=== PATIENT | male | born 1990 | race African-American/Black ===

== ENCOUNTER 2017-06-23 20:34 | Emergency (ER) | payer OTHER ==
[2017-06-23 21:35] LABS: BASOPHILS % (AUTO) 0.5 %; EOSINOPHILS # (AUTO) 0.3 10^3/uL (0.0-0.7); EOSINOPHILS % (AUTO) 3.6 %; LYMPHOCYTES # (AUTO) 1.2 10^3/uL (1.5-3.5); LYMPHOCYTES % (AUTO) 14.8 %; MEAN CORPUSCULAR HEMOGLOBIN 31.3 pg (27.0-31.0); MEAN PLATELET VOLUME 9.3 fL (7.4-11.4); MONOCYTES # (AUTO) 1.1 10^3/uL (0.0-1.0); MONOCYTES % (AUTO) 13.3 %; NEUTROPHILS # (AUTO) 5.5 10^3/uL (1.5-6.6); NEUTROPHILS % (AUTO) 67.8 %; PLT - PLATELET COUNT 201 10^3/uL (130-450); RED BLOOD COUNT 4.48 10^6/uL (4.70-6.10); RED CELL DISTRIBUTION WIDTH 12.4 % (12.0-15.0); WHITE BLOOD COUNT 8.1 x10^3/uL (4.8-10.8)
--- NOTE | 2017-06-23 21:37 | ED Physician Documentation ---
PD HPI ABD PAIN - Stated complaint Stated Complaint: LT ABDOMONAL PX - Chief complaint Chief Complaint: Abd Pain - History obtained from History obtained from: Patient - History of Present Illness Timing - onset: Enter time (16:00), Today Timing - duration: Hours Timing - details: Abrupt onset, Waxing and waning Quality: Pain Location: LUQ Radiation: No: Chest, , Lower back, Left flank, Left shoulder, Right flank, Right shoulder, Upper back Improved by: Laying still Worsened by: Moving Associated symptoms: No: Fever, Nausea, Vomiting, Diarrhea, Constipation Similar symptoms before: Has not had sx before Recently seen: Not recently seen Review of Systems Constitutional: reports: Reviewed and negative Cardiac: reports: Reviewed and negative Respiratory: reports: Reviewed and negative GI: reports: Abdominal Pain. denies: Nausea, Vomiting : denies: Dysuria, Frequency Musculoskeletal: denies: Back pain PD PAST MEDICAL HISTORY - Past Medical History Past Medical History: Yes Other Past Medical History: G6PD blood disorder - Past Surgical History Past Surgical History: No - Present Medications Home Medications: Ambulatory Orders Medication Instructions Recorded Confirmed HYDROcod/ACETAM 5/325 [[place] 5/325] 1 tab PO Q6H 06/23/17 06/23/17 Ibuprofen [Motrin] 800 mg PO QID 06/23/17 06/23/17 Methotrexate 15 mg PO 06/23/17 Omeprazole [PriLOSEC] 20 mg PO DAILY #14 capsule 06/23/17 - Allergies Allergies/Adverse Reactions: Allergies Allergy/AdvReac Type Severity Reaction Status Date / Time Sulfa (Sulfonamide Allergy Unknown Verified 06/23/17 20:42 Antibiotics) - Social History Does the pt smoke?: No Smoking Status: Never smoker Does the pt drink ETOH?: No Does the pt have substance abuse?: No - Immunizations Immunizations are current?: Yes PD ED PE NORMAL - Vitals Vital signs reviewed: Yes - General General: Alert and oriented X 3, No acute distress, Well developed/nourished - Neck Neck: Supple, no meningeal sign - Cardiac Cardiac: RRR, No murmur - Respiratory Respiratory: No respiratory distress, Clear bilaterally - Abdomen Abdomen: Soft, Non tender - Back Back: No CVA TTP, No spinal TTP - Derm Derm: No rash Results - Vitals Vitals: Oxygen O2 Source Room air - Labs Labs: Laboratory Tests 06/23/17 06/23/17 06/23/17 21:05 21:05 22:22 WBC 8.1 RBC 4.48 L Hgb 14.0 Hct 41.2 L MCV 92.0 MCH 31.3 H MCHC 34.0 RDW 12.4 Plt Count 201 MPV 9.3 Neut # 5.5 Lymph # 1.2 L [place] # 1.1 H Eos # 0.3 Baso # 0.0 Absolute Nucleated RBC 0.01 Nucleated RBC % 0.1 Sodium 138 Potassium 4.0 Chloride 101 Carbon Dioxide 28 Anion Gap 9.0 BUN 15 Creatinine 0.9 Estimated GFR (MDRD) 124 Glucose 99 Calcium 9.5 Total Bilirubin 0.7 AST 23 ALT 18 Alkaline Phosphatase 56 Total Protein 7.8 Albumin 4.3 Globulin 3.5 Albumin/Globulin Ratio 1.2 Lipase 14 L Urine Color YELLOW Urine Clarity CLEAR Urine pH 6.0 Ur Specific [place] 1.020 Urine Protein NEGATIVE Urine Glucose (UA) NEGATIVE Urine Ketones NEGATIVE Urine Occult Blood NEGATIVE Urine Nitrite NEGATIVE Urine Bilirubin NEGATIVE Urine Urobilinogen 0.2 (NORMAL) Ur Leukocyte Esterase NEGATIVE Ur Microscopic Review NOT INDICATED Urine Culture Comments NOT INDICATED - Rads (name of study) chest xray Radiology: Prelim report reviewed, See rad report PD MEDICAL DECISION MAKING - ED course Complexity details: reviewed results, re-evaluated patient, considered differential, d/w patient Departure - Departure Disposition: 01 Home, Self Care Clinical Impression: Abdominal pain Condition: Good Instructions: ED Abdominal Pain Unkn Cause Male Follow-Up: [facility] Concepcion [Provider Group] - Within 1 week Prescriptions: Omeprazole [PriLOSEC] 20 mg PO DAILY #14 capsule Discharge Date/Time: 06/23/17 23:42
[2017-06-23 21:45] LABS: ALBUMIN 4.3 g/dL (3.2-5.5); ALBUMIN/GLOBULIN RATIO 1.2 (1.0-2.2); BILIRUBIN,TOTAL 0.7 mg/dL (0.2-1.0); CALCIUM 9.5 mg/dL (8.5-10.3); CREATININE 0.9 mg/dL (0.6-1.2); TOTAL PROTEIN 7.8 g/dL (6.7-8.2)
[2017-06-23] MEDS ORDERED: KETOROLAC 60 MG/2 ML VIAL IVP STA (22:06)
[2017-06-23 22:30] LABS: BILIRUBIN,URINE NEGATIVE (NEGATIVE); GLUCOSE, URINE (UA) NEGATIVE (NEGATIVE); KETONES,URINE (UA) NEGATIVE (NEGATIVE); LEUKOCYTE ESTERASE, URINE NEGATIVE (NEGATIVE); NITRITE,URINE NEGATIVE (NEGATIVE); OCCULT BLOOD,URINE NEGATIVE (NEGATIVE); PROTEIN,URINE NEGATIVE (NEGATIVE); UROBILINOGEN,URINE 0.2 (NORMAL) E.U./dL (NORMAL)
[2017-06-23 22:34] LABS: CLARITY,URINE CLEAR (CLEAR)
[2017-06-23 22:39] VITALS: BP 145/71
--- NOTE | 2017-06-23 22:41 | XRAY Report ---
EXAM: CHEST RADIOGRAPHY EXAM DATE: 06/23/2017 10:25 PM. CLINICAL HISTORY: Left chest pain. COMPARISON: None. TECHNIQUE: 2 views. FINDINGS: Lungs/Pleura: No focal opacities evident. No pleural effusion. No pneumothorax. Normal volumes. Mediastinum: Heart and mediastinal contours are unremarkable. Other: None. IMPRESSION: Normal 2-view chest radiography. [facility] Referring Provider Line: [phone] SITE ID: [id number]
[2017-06-23] MEDS ORDERED: PANTOPRAZOLE 40 MG TABLET PO STA (23:34)
== END 2017-06-23 23:42 | disposition home or self-care (01) ==
LOC: ED 20:34
DX: R10.9 Unspecified abdominal pain (principal)
CPT/HCPCS: 36415; 71046; 80053; 81003; 83690; 85025; 96374; 99283; A9270; 81001; 87086